=== PATIENT | male | born 1950 | race Caucasian/White ===

== ENCOUNTER → 2016-10-22 | Day surgery (SDC) | payer MEDICARE, OTHER ==
[~2016-10-22] VITALS: Ht 170.2 cm; Wt 100.0 kg
[2016-10-22] VITALS (11 sets, daily range): BP systolic 121–164; BP diastolic 63–95; PULSE 65–76; RESP 10–20; O2SAT 93–97
[~2016-10-22] MED LIST: 0.9% Sodium Chloride 0 ML ONE; ASPI-973 PO; ATOR20TA65 PO; Heparin 1,000 Unit/mL 10 mL Inj ONE; Heparin 1,000 Units/500 mL NS Premix IV ONE; Heparin 10,000 Unit/1,000 mL NS Premix IV ONE; INSU100I13 SUBQ; INSU100I18 SUBQ; LISI1TAB7 PO; METF500T4 PO; Nitroglycerin 50,000 mcg/250 mL D5W Premix IV ONE; Ondansetron 2 mg/mL 2 mL Inj ONE; fentaNYL-PF 50 mCg/mL 2 mL Inj ONE
[2016-10-22 11:39] LABS: BASOPHILS % (AUTO) 0.5 % (0-3); EOSINOPHILS % (AUTO) 1.9 % (0-5); Mean Corpuscular Hemoglobin 29.4 pg (27.0-35.0); Mean Corpuscular Volume 86.2 fL (81-100); NEUTROPHILS % (AUTO) 68.7 % (40-74); Platelet Count 172 bil/L (150-400)
[2016-10-22] MEDS: 0.9% Sodium Chloride 1,000 ML IV SCH ×2 (11:45→18:39)
--- NOTE | 2016-10-22 11:59 | NUR ---
1100 admit note: Patient ambulates into department with family. His questions are answered and consent was previously signed. IV' X 2 started and labs drawn. He is prepped for procedure.
--- NOTE | 2016-10-22 14:59 | DRSVH ---
[facility] [address] [place] [address] Echocardiogram Report Name: LANNY JOE te: 10/22/2016 Height: 67 in Hospital Exam Location: [facility] Weight: 220 lb Gender: Male BSA: 2.1 m2 : 1950 Age: 66 yrs BP: 132/77 mmHg Reason For Study: Chest pain Ordering Physician: Performed By: Radha Pearson Referring Physician: MICHELLE Navarro Interpretation Summary Mild concentric left ventricular hypertrophy with ejection fraction 60-65%. Grade I diastolic dysfunction. Mild aortic stenosis. The peak aortic velocity is 2.2 m/sec. Mild-moderately enlarged ascending aorta. Mildly enlarged aortic arch. Procedure: A two-dimensional transthoracic echocardiogram with color flow and Doppler was performed. The study quality was technically adequate. There is no prior echocardiogram noted for this patient. The patient was in normal sinus rhythm during the exam. Left Ventricle: The left ventricle is normal in size. There is mild concentric left ventricular hypertrophy. The ejection fraction is estimated to be 60-65%. There are no focal wall motion abnormalities. Assessment of diastolic parameters indicates a relaxation abnormality of the left ventricle, consistent with normal filling pressures. Right Ventricle: The right ventricle is normal in size and function. Atria: Both atria are normal in size. There is no Doppler evidence for an interatrial shunt. Mitral Valve: The mitral valve leaflets appear borderline thickened, but open well. There is no mitral regurgitation noted. Aortic Valve: The aortic valve is trileaflet. The aortic valve is mildly calcified. Leaflet mobility is mildly reduced. There is mild aortic stenosis. The peak aortic velocity is 2.2 m/sec. The aortic valve mean gradient is 8 mmHg. The calculated aortic valve area is 1.8 cm2. The aortic valve area indexed to the BSA is 0.85 . There is trace aortic regurgitation. Tricuspid Valve: The tricuspid valve is normal in structure and function. Pulmonary artery pressures cannot be estimated because of the lack of a measurable TR jet velocity. Pulmonic Valve: The pulmonic valve leaflets are thin and pliable; valve motion is normal. There is trace pulmonic regurgitation. Great Vessels: The aortic root is mildly dilated. The ascending aorta is mild-moderately enlarged. The aortic arch is mildly enlarged. The pulmonary artery is normal size. The inferior vena cava was not well visualized. Pericardium/ Pleura There is no pericardial effusion. MMode/2D Measurements & Calculations LVIDd: 4.8 cm LA dimension: 4.3 cm RA long axis LVOT diam: 2.3 cm LVIDs: 3.3 cm AoV Opening FS: 31.0 % LA A2 area: 19.7 cm RA area EPSS: 0.96 cm LA A4 area: 16.6 cm Ao root diam IVSd: 1.3 cm LA length (vol) : 17.4 cm LVPWd: 1.1 cm RA vol Aortic Jxn: 3.3 cm LA vol: 55.0 ml : 51.8 ml asc Aorta Diam LA vol index RA : 24.6 mm2 Ao Arch Diam (Prox : 26.1 ml/m2 Trans): 3.5 cm LV tejeda. diameter/BSA LV sys. diameter/BSA RVD1 (basal) TAPSE: 2.5 cm (cm/m^2): 2.3 (cm/m^2): 1.6 Doppler Measurements & Calculations Ao V2 max MV E max michael MV E/A: 0.63 PA V2 max : 216.0 cm/sec : 66.6 cm/sec Med Peak E' Michael : 74.9 cm/sec Ao max PG MV A max michael PA mean PG : 18.7 mmHg : 104.9 cm/sec E/E' med: 15.6 Ao mean PG MV P1/2t: 67.8 msec Lat Peak E' Michael PA Accel Time : 0.11 sec LVOT Max Michael E/E' lat: 10.0 : 91.1 cm/sec E/e' average: 12.8 LAVELL(I,D): 1.8 cm sev ratio MV dec time MV P1/2t max michael Ao V2 mean LV V1 max PG : 0.23 sec : 132.4 cm/sec MVA(P1/2t): 3.2 cm2 Ao V2 VTI: 43.8 cm LV V1 VTI LAVELL(V,D): 1.8 cm2 : 18.0 cm PA V2 mean LAVELL indexed to BSA : 55.2 cm/sec (cm^2/m^2): 0.85 Electronically signed by: Kerrie Louise on Reading Physician:10/22/2016 02:59 PM
--- NOTE | 2016-10-22 15:13 | CS94 ---
[address] [address] DIAGNOSTIC CARDIAC CATHETERIZATION PATIENT: LANNY JOE : 1950 MR#: [id number] ADMIT: 10/22/2016 JOB ID: [id number] SERVICE DATE: 10/22/2016 PATIENT PROFILE: The patient is a 66-year-old male with history of longstanding diabetes, hypercholesterolemia, and family history of coronary artery disease. The patient presented with exertional chest discomfort and dyspnea. His recent stress sestamibi was abnormal. PROCEDURE: 1. Retrograde left heart catheterization. 2. Selective coronary angiography. 3. Left ventricular angiogram. 4. Vascular closure device, Perclose. COMPLICATIONS: None. METHOD: Retrograde left heart catheterization was performed from the right groin under 1% lidocaine local anesthesia using a 6-Canadian sheath. Selective coronary angiogram was performed in multiple projections, including cranial and caudal angulation with hand injected contrast via JL4 and 3DRC catheters. A 6-Canadian angulated pigtail catheter was advanced to the left ventricle and left ventricular angiogram was performed in the 30 degree HAJI view by injecting contrast at the rate of 12 cc/second for 3 seconds. This catheter was withdrawn. Right femoral angiogram was performed before sheath removal. Hemostasis was achieved by using a Perclose device. The patient tolerated procedure well. He was transferred to [facility] in good condition. TOTAL CONTRAST USED: 80 cc. FLUOROSCOPY TIME: 4.9 minutes. Total radiation dose is 592 milligray. RESULTS: 1. Selective coronary angiogram: a. Left main coronary artery has 30% to 40% stenosis with heavy calcification. b. The left anterior descending artery is transapical and has heavy calcification in the proximal half with eccentric 60% stenosis in the proximal portion and 60% stenosis in the mid portion at the second diagonal branch bifurcation. There is minor 20% to 30% stenosis in the distal portion. The first diagonal branch has moderate disease. The second diagonal branch has severe stenosis at its origin. c. The circumflex artery has diffuse disease of 50% to 60% stenosis. d. The dominant right coronary artery has moderate calcification with diffuse disease and 80% stenosis in the mid portion. 2. Left ventricular angiogram demonstrated normal left ventricular systolic function (visually estimated ejection fraction 60% to 65%). There is no wall motion abnormality. There is no mitral regurgitation. 3. There is no gradient across the aortic valve on catheter withdrawal. 4. Aortic pressure is 136/70 mmHg. Left ventricular pressure is 132/0 mmHg. 5. Left ventricular end-diastolic pressure is 12 mmHg. CONCLUSION: 1. Diffuse severe three-vessel coronary artery disease with moderate calcification. 2. LVEF of 65%. 3. LVEDP is 12 mmHg. MTDD
--- NOTE | 2016-10-22 18:34 | NUR ---
MC DISCHARGE PT WAS RECEIVED FROM [employer] [facility] AT 1500. RIGHT GROIN WITH PERCLOSE AND GAUZE DRSG HAS REMAINED C/D/I, SOFT, NON TENDER, NO BLEEDING OR HEMATOMA NOTED. PT COMPLETED HIS 3 HOURS OF BEDREST, WHICH WAS CONFIRMED WITH DR JACKSON, AND THEN AMBULATED IN LANCE AND USED THE BATHROOM WITH RIGHT GROIN REMAINING STABLE. PT DENIED ANY DIZZINESS WHEN UP AND ABOUT. HE DID HAVE SOME N/V WITH HIS MEAL BUT DECLINED THE ZOFRAN OFFERED AND IT SUBSIDED. DISCHARGE INSTRUCTIONS INCLUDING F/U, MEDICATIONS, AND POST SEDATION AND POST HEART CATH INSTRUCTIONS WERE REVIEWED AND PT AND VERBALIZED UNDERSTANDING. PT DISCHARGED AT 1815 WITH FAMILY IN STABLE CONDITION.
== END | disposition home or self-care (01) ==
LOC: SOUO 00:11
PROVIDERS: ATTEND Internal Medicine Interventional Cardiology
DX: I25.10 Atherosclerotic heart disease of native coronary artery without angina pectoris (principal); I25.82 Chronic total occlusion of coronary artery; E78.5 Hyperlipidemia, unspecified; E11.65 Type 2 diabetes mellitus with hyperglycemia; E66.9 Obesity, unspecified; Z79.82 Long term (current) use of aspirin; Z79.4 Long term (current) use of insulin; Z79.84 Long term (current) use of oral hypoglycemic drugs; E78.00 Pure hypercholesterolemia, unspecified; I10 Essential (primary) hypertension; Z82.49 Family history of ischemic heart disease and other diseases of the circulatory system; I25.84 Coronary atherosclerosis due to calcified coronary lesion
CPT/HCPCS: 36415; 80048; 85025; 93005; 93458; 99152; 99153; C1760; C1769; C8929; J1644; J2060; J2250; J3010; J7030; Q9967

== ENCOUNTER → 2016-12-28 | Day surgery (SDC) | payer MEDICARE, OTHER ==
[~2016-12-28] VITALS: Ht 170.2 cm; Wt 96.2 kg
[~2016-12-28] MED LIST changes: -0.9% Sodium Chloride 0 ML ONE; -Heparin 1,000 Unit/mL 10 mL Inj ONE; -Heparin 1,000 Units/500 mL NS Premix IV ONE; -Heparin 10,000 Unit/1,000 mL NS Premix IV ONE; +Lactated Ringer's 1,000 ML IV SCH; +MetoCLOpramide 5 mg/mL 2 mL Inj IVPUSH PRN; -Nitroglycerin 50,000 mcg/250 mL D5W Premix IV ONE; +Ondansetron 2 mg/mL 2 mL Inj IVPUSH PRN; -Ondansetron 2 mg/mL 2 mL Inj ONE; +Propofol 10,000 mCg/mL 20 mL Inj ONE; +Sodium Chloride LOK Flush 10 mL Syringe IV PRN; +fentaNYL-PF 50 mCg/mL 2 mL Inj IVPUSH PRN; -fentaNYL-PF 50 mCg/mL 2 mL Inj ONE
[2016-12-28 14:13] VITALS: BP 164/93; PULSE 64; RESP 16; O2SAT 99
--- NOTE | 2016-12-28 14:47 | PCM.HPANE ---
Patient Data Surgeon Admitting Provider: Attending Provider:Conor Hutchinson MD Primary Care Physician:Nathalie Navarro PA-C Other Provider: Reason for Visit Colon Cancer Screening Ht/WT & BMI Height (Feet): 5 Height (Inches): 7 Weight (Kilograms): 96.16 Body Mass Index 33.00 Allergies Coded Allergies: No Known Allergies (Unverified , 12/28/16) Past Anesthesia History Anesthesia History: Denies:: Abnormal Airway, Anesthesia Reactions, Difficult Intubation Diabetes History Hx Diabetes?: Yes Glycemic Control: Insulin Dependent Current Bedside Blood Glucose: 145 MRSA MRSA: No Medications Blood Thinner: Aspirin Last Dose Blood Thinner: Dec 25, 2016 Reported Medications Insulin Lispro (HumaLOG U100 Insulin Pen)100 Unit/1 Ml Insuln.[id number] Unit SUBQ TID #1 PENINJ Ref 0 Blood Sugar Lispro Correction <151 0 units 151-175 1 unit 176-200 2 units 201-225 3 units 226-250 4 units 251-275 5 units 276-300 6 units 301-325 7 units 326-350 8 units 351-375 9 units 376-400 10 units >400 12 units Check blood sugars before meals and at bedtime. Use correction factor only before meals. 10/21/16 Insulin Glargine (Lantus U100 Solostar Insulin Pen)100 Unit/1 Ml Insuln.pen70 Unit SUBQ DAILY #1 PENINJ Ref 0 10/21/16 Metformin 500 Mg Tablet1,000 Mg PO BID Ref 0 10/21/16 Lisinopril / HCTZ 10-12.5 mg 1 Each Tablet1 Each PO BID Ref 0 10/21/16 Atorvastatin Calcium 20 Mg [id number] Mg PO HS Ref 0 10/21/16 Aspirin 81 Mg [id number] Mg PO DAILY Ref 0 10/21/16 History History of ENT Problems?: No HEENT History: Denies:: Abnormal Airway Difficult Intubation Hearing Problem Denture Type: None Teeth Condition: Within Normal Limits Hx of Heart Problems?: Yes Cardiovascular History: Positive for:: Chest Pain (W/ EXERTION, going to have a 3 vessel CABG in a few days) Hypertension (hyperlipidemia) Denies:: Cardiac Surgery Congestive Heart Failure Edema Heart Murmur Irregular Heartbeat Valvular Heart Disease Hx of Respiratory Problem?: No Respiratory History: Denies:: Asthma Chest Surgery Dyspnea Pneumonia Tuberculosis Hx Neurologic Problems?: No Neurological History: Denies:: CVA Hx of GI Problems?: No Hx of Problems?: No HX of Peritoneal Dialysis: No Male Hx: Denies:: Prostate Problems Scrotal Mass Testicular Surgery Hx Musculoskeletal Problems?: No Musculoskeletal History: Denies:: Back Injury (in the past) Joint Replacement Hx of Psycho/Social Problems?: No Hx Surgeries?: Yes (R wrist) Hx Any Other Health Problems?: Yes Other History: Denies:: Cancer Hospitalization Thyroid Disease History Blood Transfusions: Denies:: Blood Transfusions Hx Diabetes: YesBedside Blood Glucose: 145 Hx Alcohol Use: Yes (sELDOM)Hx Substance Use: No Smoking Status: Never Smoker Stop/Bang Treated for Sleep Apnea?: Yes (positive) Do You Have a CPAP Machine?: No IVY Risk Assessment: High Risk, =/>3 Yes IVY Category 4 OutPt Procedure: Yes Risk Assessment Category Category 1A: Patient has history of documented sleep apnea, and HAS NOT received any narcotic, sedative or anesthesia administration during this stay. Category 1B: Patient has history of documented sleep apnea, and HAS received any narcotic , sedative or anesthesia administration during this stay Category 2: Patient has SUSPECTED Obstructive Sleep Apnea, and HAS received any narcotic , sedative or anesthesia administration during this stay. Category 3: Patient has SUSPECTED Obstructive Sleep Apnea and HAS NOT received narcotic, sedative or anesthesia administration during this stay. Category 4: Outpatient in Procedural Areas with known sleep apnea or who screen positive for High Risk via the STOP/BANG questionnaire. Exam Exam Vital Signs Vital Signs Date Time Temp Pulse Resp B/P Pulse Ox O2 Delivery O2 Flow Rate FiO2 12/28/16 14:13 64 16 164/93 99 Room Air General Appearance: Alert, Oriented X3, Cooperative, No Acute Distress HEENT/AIRWAY: MP 2 Lungs: Clear to Auscultation, Normal Air Movement Heart: Exam Unremarkable, Regular Rate/Rhythm, No Murmurs/Rubs/Gallops Meds/Labs/Diagnostics Bedside Blood Glucose: 145 Plan Impression Patient chart reviewed, patient interviewed and anesthestic plan with risks, benefits, and alternatives discussed, and informed consent obtained. NPO per Anesth. Guidelines: Yes ASA Physical Status: ASA3 Severe Disease (ischemic heart disease) Anesthetic Plan: MAC Bene/Risks/Altern/Consents: Yes HP Complete Prior to Induction: Yes Lex Cabrales MD Dec 28, 2016 14:47
[2016-12-28] MEDS: 0.9% Sodium Chloride 1,000 ML IV PRN ×2 (15:00→15:06)
[2016-12-28 15:12] VITALS: BP 121/65; PULSE 64; RESP 16; O2SAT 97
[2016-12-28 15:22] VITALS: BP 133/77; PULSE 64; RESP 16; O2SAT 98
[2016-12-28 15:32] VITALS: BP 153/92; PULSE 64; RESP 16; O2SAT 93
--- NOTE | 2016-12-28 16:59 | ENDO ---
[address] [address] ENDOSCOPY PROCEDURE PATIENT: LANNY JOE : 1950 MR#: [id number] ADMIT: 12/28/2016 JOB ID: [id number] TITLE OF OPERATION: Colonoscopy with biopsy. PREOPERATIVE DIAGNOSIS(ES): Diarrhea. POSTOPERATIVE DIAGNOSIS(ES): Suboptimal prep. Otherwise normal colonoscopy status post biopsy. ANESTHESIA: Monitored anesthesia care. COMPLICATIONS: None. BLOOD LOSS: Minimal. DESCRIPTION OF PROCEDURE: After the risks and benefits were explained to the patient, informed consent was obtained. After anesthesia was administered, the colonoscope was inserted from the rectum to the terminal ileum and the mucosa carefully examined. Prep of the patient was suboptimal. After the procedure was done, the scope withdrawn and the procedure terminated. FINDINGS: Upon inspection of the anus, no masses, hemorrhoids, ulcers, or fissures that were seen. Throughout the entire examination there was quite an amount of sticky stool that was seen throughout the entire colon. Biopsies taken at the terminal ileum and random colon. Retroflexion was normal. IMPRESSION: Suboptimal prep. Otherwise normal colonoscopy. RECOMMENDATIONS: Await pathology results. Repeat colonoscopy with two day prep after the patient's triple bypass heart surgery. Follow up in GI Clinic as needed.
--- NOTE | 2016-12-29 07:33 | PCM.ANEP1 ---
Post Anesthesia PACU Phase 1 Assessment Anesthetic Administered: MAC Level of Alertness: Awake, talking MARTÍNEZ's with Equal Strength: Yes Pain: No Nausea or Vomiting: No CV Function & Hydration Stable: Yes Airway Device: Oxygen Delivery: Nasal Cannula Lungs: Clear to Auscultation, Normal Air Movement Dermatome Level: Full Sensation PACU Phase 2 Assessment Complications: No Follow up Care: No Patient Instructions Provided: N/A Lex Cabrales MD Dec 29, 2016 07:33
--- NOTE | 2016-12-31 11:35 | PATH ---
SURGICAL PATHOLOGY Attending Physician:Conor Hutchinson MD CASE STATUS: Signed Out PATIENT NAME: LANNY JOE PID: [id number] : 1950 DATE COLLECTED:12/28/2016 00:00 SPECIMEN: 1: Ileum, Biopsy 2: Colon, Biopsy CLINICAL HISTORY: 1). TERMINAL ILEUM BIOPSY 2). RANDOM COLON BIOPSY FINAL DIAGNOSIS: 1. Terminal Ileum, Biopsy: Ileal mucosa with no diagnostic abnormality. Negative for active inflammation, granulomata, dysplasia or malignancy. 2. Random Colon, Biopsies: Colonic mucosa with melanosis coli. Negative for active or microscopic colitis. Negative for granulomata, dysplasia or malignancy. ICD10: R19.7 GROSS DESCRIPTION: The specimen is received in two formalin filled containers labeled with the patient's name. 1). The specimen is labeled "terminal ileum" and consists of 2 portions of tissue which aggregate to 0.2 x 0.2 x 0.2 CM. The specimen is entirely submitted in cassette 1A. 2). The specimen is labeled "random colon" and consists of 4 portions of tissue which aggregate to 0.6 x 0.2 x 0.2 CM. The specimen is entirely submitted in cassette 2A. 12/29/2016RI ICD-9 CODES: CPT CODES: 1: 14657 2: 07328 Electronically Signed Out Aldo Regan MD, Ph.D. [facility] Pathology [facility] [address], [place] [address] Technical component performed at [facility], [facility] [address], [place], [address]
== END | disposition home or self-care (01) ==
LOC: END 00:48
PROVIDERS: ATTEND Internal Medicine Gastroenterology
DX: R19.7 Diarrhea, unspecified (principal); K63.89 Other specified diseases of intestine; I25.10 Atherosclerotic heart disease of native coronary artery without angina pectoris; E78.5 Hyperlipidemia, unspecified; I10 Essential (primary) hypertension; E11.40 Type 2 diabetes mellitus with diabetic neuropathy, unspecified; Z79.82 Long term (current) use of aspirin; Z79.4 Long term (current) use of insulin; Z79.84 Long term (current) use of oral hypoglycemic drugs
CPT/HCPCS: 45380; J2704; J7030